=== PATIENT | male | born 1950 | race Caucasian/White ===

== ENCOUNTER → 2017-04-07 | Outpatient (CLI) | payer OTHER ==
[~2017-04-07] MED LIST: ASPI81TA28 PO; ATOR-24 PO; DIPH-437 PO; IRBE-43 PO; MULT-506 PO; OXYC-57 PO
== END | disposition home or self-care (01) ==
LOC: C.LAB 15:21
PROVIDERS: ATTEND Family Medicine
DX: R35.1 Nocturia (principal)